=== PATIENT | male | born 1945 | race Caucasian/White ===

== ENCOUNTER 2024-11-12 11:22 | Inpatient (IN) | payer MEDICARE, OTHER ==
[~2024-11-12] VITALS: Ht 172.7 cm; Wt 89.8 kg
[2024-11-12 11:57] LABS: PLATELET COUNT (AUTO) 247 K/uL (150-450); RED BLOOD CELL COUNT(AUTO) 4.99 MIL/uL (4.50-5.90); RED CELL DISTRIBUTION WIDTH 13.3 % (11.5-14.5); WHITE BLOOD COUNT (AUTO) 6.6 K/uL (4.5-11.0)
[2024-11-12] MEDS: SODIUM CHLORIDE 0.9% 2,000 ML IV ONE (12:02)
[2024-11-12 12:07] LABS: CALCIUM, TOTAL 9.1 mg/dL (8.8-10.5); CREATININE 0.94 mg/dL (0.60-1.30); GLOMERULAR FILTR. RATE CALC > 60 mL/min (>60); GLUCOSE,RANDOM 115 mg/dL (70-110); SODIUM SERUM 136 mmol/L (136-145); UREA NITROGEN, BLOOD 36 mg/dL (7-18)
[2024-11-12 12:14] LABS: ASPARTATE AMINOTRANSFERASE 27 U/L (15-37); TOTAL PROTEIN, SERUM 7.5 g/dL (6.4-8.2)
[2024-11-12 12:18] LABS: LACTIC ACID 1.2 mmol/L (0.4-2.0); TROPONIN I-HIGH SENSITIVITY 17 ng/L (<76)
[2024-11-12 14:37] LABS: COVID AG,FIA SOURCE NASAL SWAB
[2024-11-12 14:55] LABS: SARS-COV2 (COVID) ANTIGEN,FIA Negative (Negative)
[2024-11-12 14:56] LABS: INFLUENZA TYPE A NEGATIVE FOR TYPE A (NEGATIVE); INFLUENZA TYPE B NEGATIVE FOR TYPE B (NEGATIVE)
[2024-11-12] MEDS ORDERED: PROP20TA18 PO (15:42)
[2024-11-12] MEDS ORDERED: ATOR10TA69 PO (15:43)
[2024-11-12] MEDS ORDERED: LISI-663 PO (15:43)
[2024-11-12] MEDS ORDERED: AMLO10TA55 PO (15:43)
[2024-11-12] MEDS ORDERED: ALBUTEROL SULFATE 2.5 MG/0.5 ML NEB SOLUTION NEB PRN (20:45)
[2024-11-12] MEDS ORDERED: MAGNESIUM HYDROXIDE SUSPENSION 30 ML UDCUP PO PRN (20:45)
[2024-11-12] MEDS ORDERED: MORPHINE SULFATE 4 MG/ML VIAL IVP PRN (20:45)
[2024-11-12] MEDS ORDERED: ONDANSETRON HCL 4 MG/2 ML VIAL IVP PRN (20:45)
[2024-11-12] MEDS ORDERED: HYDROCODONE/ACETAMINOPHEN 5-325 MG TABLET PO PRN (20:45)
[2024-11-12] MEDS ORDERED: ACETAMINOPHEN 325 MG TABLET PO PRN (20:45)
[2024-11-12] MEDS ORDERED: BISACODYL 10 MG RECTAL RECTAL SUPPOSITORY PR PRN (20:45)
[2024-11-12] MEDS ORDERED: IPRATROPIUM BROMIDE 0.5 MG/2.5 ML NEB SOLUTION NEB PRN (20:45)
[2024-11-12] MEDS ORDERED: ZOLPIDEM TARTRATE 5 MG TABLET PO PRN (20:45)
[2024-11-12] MEDS: PROPRANOLOL HCL 20 MG TABLET PO SCH (21:26)
[2024-11-12] MEDS: SODIUM CHLORIDE 0.9% 1,000 ML IV SCH (21:26)
[2024-11-12 21:28] VITALS: BP 124/88; PULSE 88; RESP 18; TEMP 98.1; O2SAT 92
[2024-11-12] MEDS: HEPARIN SODIUM,PORCINE 5,000 UNITS/ML VIAL SQ SCH (23:54)
[2024-11-13 03:18] VITALS: BP 124/72; PULSE 80; RESP 18; TEMP 98.1; O2SAT 92
[2024-11-13] MEDS: PANTOPRAZOLE SODIUM 40 MG DR TABLET PO SCH (08:13)
[2024-11-13] MEDS: ATORVASTATIN CALCIUM 10 MG TABLET PO SCH (08:13)
[2024-11-13 08:52] VITALS: BP 124/71; PULSE 89; RESP 18; TEMP 98.4; O2SAT 97
[2024-11-13 15:22] VITALS: BP 121/70; PULSE 76; RESP 18; TEMP 97.5; O2SAT 96
[2024-11-13 19:37] VITALS: BP 129/70; PULSE 79; RESP 18; TEMP 97.7; O2SAT 98
[2024-11-14 04:54] VITALS: BP 119/65; PULSE 72; RESP 18; TEMP 97.9; O2SAT 94
[2024-11-14 08:00] VITALS: BP 136/68; PULSE 76; RESP 18; TEMP 97.5; O2SAT 96
[2024-11-14] MEDS ORDERED: DENTURE ADHESIVE 68 GM CREAM DT PRN (09:45)
[2024-11-14 16:05] LABS: PLATELET COUNT (AUTO) 302 K/uL (150-450); RED BLOOD CELL COUNT(AUTO) 4.83 MIL/uL (4.50-5.90); RED CELL DISTRIBUTION WIDTH 13.2 % (11.5-14.5); WHITE BLOOD COUNT (AUTO) 9.7 K/uL (4.5-11.0)
[2024-11-14 16:12] LABS: CALCIUM, TOTAL 8.7 mg/dL (8.8-10.5); CREATININE 1.10 mg/dL (0.60-1.30); GLOMERULAR FILTR. RATE CALC > 60 mL/min (>60); GLUCOSE,RANDOM 108 mg/dL (70-110); SODIUM SERUM 137 mmol/L (136-145); UREA NITROGEN, BLOOD 17 mg/dL (7-18)
[2024-11-14 16:16] LABS: ASPARTATE AMINOTRANSFERASE 34 U/L (15-37); TOTAL PROTEIN, SERUM 7.2 g/dL (6.4-8.2)
[2024-11-14 16:43] VITALS: BP 113/62; PULSE 76; RESP 18; TEMP 97.9; O2SAT 95
[2024-11-14 19:00] VITALS: BP 151/76; PULSE 80; RESP 18; TEMP 98.2; O2SAT 97
[2024-11-14 20:08] VITALS: BP 132/96; PULSE 82; RESP 18; TEMP 98.4; O2SAT 95
== END 2024-11-14 20:51 | disposition home or self-care (01) | DRG 392 ==
LOC: EMS 11:24 → EDH 14:45 → 6S 20:35 → 4E 11-14 18:44
PROVIDERS: ADMIT Hospitalist; ATTEND Hospitalist
DX: A08.4 Viral intestinal infection, unspecified (principal); E86.0 Dehydration; I10 Essential (primary) hypertension; Z20.822 Contact with and (suspected) exposure to COVID-19; E78.00 Pure hypercholesterolemia, unspecified; Z85.828 Personal history of other malignant neoplasm of skin; Z85.89 Personal history of malignant neoplasm of other organs and systems; M19.90 Unspecified osteoarthritis, unspecified site
CPT/HCPCS: 71045; 74018; 80048; 80053; 80076; 83605; 83690; 84484; 85025; 87040; 87045; 87177; 87804; 89055; 93005; 96360; 97116; 97162; 97166; 97530; 97535; 99285; J1644; J7030; 36415-L1; 36415-TC